=== PATIENT | female | born 1980 | race Caucasian/White ===

== ENCOUNTER 2016-11-26 05:17 | Inpatient (IN) | payer MEDICAID ==
[2016-11-26] MEDS ORDERED: Lactated Ringers 1,000 ML IV SCH (06:16)
[2016-11-26] MEDS ORDERED: Oxytocin 10 Units/1 ML SDV ONE ×2 (06:44→07:40)
[2016-11-26] MEDS ORDERED: cefOXitin 1 GM Vial ONE (06:45)
[2016-11-26] MEDS ORDERED: Albuterol/Ipratropium 3.0-0.5 MG/3 ML Neb Soln ONE (07:08)
[2016-11-26] MEDS ORDERED: Albuterol/Ipratropium 3.0-0.5 MG/3 ML Neb Soln INH ONE (07:15)
[2016-11-26] MEDS ORDERED: Sodium Chloride 0.9% 10 ML ONE (07:39)
[2016-11-26] MEDS ORDERED: cefOXitin 2 GM Vial ONE (07:39)
[2016-11-26] MEDS ORDERED: fentaNYL 100 MCG/2 ML SDV ONE (07:59)
[2016-11-26] MEDS ORDERED: HYDROmorphone/Normal Saline 15 MG/30 ML PCA IV ONE (09:03)
[2016-11-26] MEDS ORDERED: Naloxone 0.4 MG/ML SDV IV PRN (09:16)
[2016-11-26] MEDS ORDERED: HYDROmorphone/Normal Saline 15 MG/30 ML PCA IV PRN (09:16)
[2016-11-26] MEDS ORDERED: hydrOXYzine HCl 25 MG Tab PO PRN (09:21)
[2016-11-26] MEDS ORDERED: hydrOXYzine HCl 100 MG/2 ML SDV IM PRN (09:21)
[2016-11-26] MEDS ORDERED: Ondansetron 4 MG/2 ML SDV IVPUSH PRN (09:22)
[2016-11-26] MEDS ORDERED: Albuterol/Ipratropium 3.0-0.5 MG/3 ML Neb Soln INH PRN (09:25)
[2016-11-26] MEDS: Dextrose 5%-Lactated Ringers 1,000 ML IV SCH ×2 (13:32→19:53)
[2016-11-26] MEDS: cefOXitin 2 GM in Sodium Chloride 0.9% 50 ML IV SCH ×2 (13:37→19:53)
[2016-11-26] MEDS: Albuterol/Ipratropium 3.0-0.5 MG/3 ML Neb Soln INH SCH ×3 (14:06→22:02)
[2016-11-26] MEDS: Methylphenidate 10 MG Tab PO SCH (22:07)
[2016-11-27] MEDS: Dextrose 5%-Lactated Ringers 1,000 ML IV SCH (02:18)
[2016-11-27] MEDS: cefOXitin 2 GM in Sodium Chloride 0.9% 50 ML IV SCH (03:02)
[2016-11-27] MEDS: Albuterol/Ipratropium 3.0-0.5 MG/3 ML Neb Soln INH SCH ×4 (07:24→21:29)
[2016-11-27] MEDS ORDERED: Dextrose 5%-Lactated Ringers 1,000 ML IV SCH (07:30)
[2016-11-27] MEDS: Acetaminophen/HYDROcodone 325-5 MG Tab PO PRN ×3 (07:50→20:15)
[2016-11-27] MEDS: Pantoprazole 40 MG Tab.CR PO SCH (07:51)
[2016-11-27] MEDS: Docusate Sodium 100 MG Cap PO SCH ×2 (09:03→21:29)
[2016-11-27] MEDS: Ibuprofen 600 MG Tab PO SCH ×3 (09:03→21:29)
[2016-11-27] MEDS: Azithromycin 250 MG Tab PO SCH (09:04)
[2016-11-27] MEDS: Methylphenidate 10 MG Tab PO SCH ×2 (09:08→21:29)
--- NOTE | 2016-11-27 11:38 | PN ---
DATE OF SERVICE: 11/27/2016 SUBJECTIVE: Yajaira is postop day 1. She had a yesterday. She reports her pain is controlled. Vital signs have been stable. She has been up sitting in the chair. She does report a cough. REVIEW OF SYSTEMS: Remainder of review of systems negative for any pertinent positives and negatives. OBJECTIVE: GENERAL: Yajaira Marrero is a pleasant 36-year-old female. She is alert and orientated. VITAL SIGNS: TPR is 98.6, 92, 16, blood pressure 130/70. HEENT: Negative. NECK: Supple. HEART: Regular rate and rhythm. LUNGS: Decreased breath sounds bilaterally. There sound being, she has rales and rhonchi in both lungs. Cough is coarse. History of 2-pack a day smoker. ABDOMEN: Dressings dry and intact. EXTREMITIES: Without peripheral edema. ASSESSMENT: section with spinal anesthesia. Evans Olivia MD, 11/27/2016. PLAN: 1. Discontinue RESIDENT DIRECTOR and continuous pulse ox. 2. [place] 5/325 mg 1 to 2 every 4 hours p.r.n. pain. 3. Ibuprofen 600 mg q.6 hours p.r.n. pain. 4. Dressing off. 5. May shower. 6. D5 LR 100 mL per hour. 7. May saline lock if oral intake is adequate. 8. Discontinue clear liquid. 9. May have regular diet. 10.Colace 100 mg b.i.d. 11.Rx Zithromax 500 mg p.o. daily for 3 days. 12.Continue DuoNeb, aggressively work on lungs. 13.We will evaluate p.r.n. or in a.m. Xin Pulido PA-C /[id number]
[2016-11-28] MEDS: Ibuprofen 600 MG Tab PO SCH ×2 (04:05→10:39)
[2016-11-28] MEDS: Acetaminophen/HYDROcodone 325-5 MG Tab PO PRN ×2 (04:06→09:12)
[2016-11-28] MEDS: Albuterol/Ipratropium 3.0-0.5 MG/3 ML Neb Soln INH SCH ×2 (07:21→10:52)
--- NOTE | 2016-11-28 08:52 | DISCH ---
ADMISSION DIAGNOSES: 1. Planned pre-section. 2. Nicotine addiction. Smokes 2 packs of cigarettes a day. 3. Attention deficit hyperactivity disorder. 4. Asthma. 5. Depression. 6. History of one C section. 7. History of normal spontaneous vaginal deliveries x5. DISCHARGE DIAGNOSES: 1. section. 2. Bronchitis. HISTORY: Yajaira Marrero is a 36-year-old female who was scheduled for a repeat . After preoperative evaluation and discussion of possible risks and possible complications, she wished to proceed with surgical procedure. HOSPITAL COURSE: Yajaira had a on 11/26/2016. She had no operative complications. She delivered a viable baby girl. On postop day #1, she was started on a regular diet and oral pain medication. Her dressings were taken off, and she was showered. She was started on a stool softener as well as Zithromax 500 mg and DuoNebs. On postop day #2, she was able to be discharged to home. PHYSICAL EXAMINATION: GENERAL: Yajaira Marrero is a 36-year-old female. VITAL SIGNS: Height is 5 feet 1 inch. Weight is 204 pounds. TPR is 98.5, 76, 18, and blood pressure 113/61. HEENT: Negative. NECK: Supple. HEART: Regular rate and rhythm. LUNGS: Revealed better air exchange. She still has rhonchi and occasional wheezing. ABDOMEN: Incision looks good. Steri-Strips intact. EXTREMITIES: Without peripheral edema or leg pain. DISPOSITION: Discharged to home. CONDITION: Stable and improving. FOLLOWUP APPOINTMENT: With Xin Puildo PA-C, on 12/03/2016 at 11 a.m. DISCHARGE MEDICATIONS: Home medications; 1. [place] 5/325 mg 1 to 2 every 4 hours p.r.n. pain, #30. 2. Zithromax 500 mg p.o. daily. 3. Colace 100 mg p.o. b.i.d., #100. 4. Ibuprofen 600 mg q.6 hours, #48. 5. She is to resume her vitamins as directed and omeprazole 20 mg daily. DISCHARGE DIET: Usual diet as tolerated. Drink 8 to 10 glasses of water a day. ACTIVITY: No lifting more than baby and car seat for 6 weeks[address] Driving, do not drive while on pain medication. Shower/bathing, keep operative site clean and dry. DISCHARGE INSTRUCTIONS: Notify provider if any fever or increased pain. Special instruction; use incentive spirometer 10 times every hour while awake for 2 weeks. Try to decrease smoking and eventually stop.
[2016-11-28] MEDS: Docusate Sodium 100 MG Cap PO SCH (09:12)
[2016-11-28] MEDS: Azithromycin 250 MG Tab PO SCH (09:12)
[2016-11-28] MEDS: Pantoprazole 40 MG Tab.CR PO SCH (09:13)
[2016-11-28] MEDS: Methylphenidate 10 MG Tab PO SCH (09:15)
[2016-11-28 11:28] VITALS: BP 118/71
--- NOTE | 2016-12-01 11:03 | OR ---
DATE OF PROCEDURE: 11/26/2016 PREOPERATIVE DIAGNOSIS: Term with history of previous section. POSTOPERATIVE DIAGNOSES: 1. Term with history of previous section. 2. Incisional hernia. OPERATIVE PROCEDURES: 1. Repeat section (01735). 2. Repair of incisional hernia (32245). ANESTHESIA: Spinal. VIDEO GAME SCRIPT WRITER: Linda Jimenez CNM INDICATION FOR PROCEDURE: This is a 36-year-old presenting for a scheduled repeat section. The potential risks of the procedure including bleeding, infection, injury to mother and her baby were all reviewed, and the patient wishes to proceed. DETAILS OF PROCEDURE: After spinal anesthetic was placed, the patient was positioned in the supine position in the operating room with a roll underneath the right hip. A Schulz catheter was inserted, and the abdomen was prepped and draped. The previous transverse Pfannenstiel-type incision was then reused and carried down through the skin and subcutaneous tissue, and out through the rectus sheath. Subrectus sheath flaps were then raised superiorly and inferiorly. At that point, the patient was noted to have an incisional hernia located in the lower midline between the rectus muscle, more or less in the suprapubic area. This was subsequently repaired at the time of closure. The midline peritoneum was then divided, which included the area of the hernia, and the peritoneal reflection of bladder on the uterus was then divided, and the bladder was reflected downward. A transverse uterine incision was made and a viable female was delivered through a vertex presentation. Cord was clamped and cut and routine care given off the field per Linda Jimenez. The scores on the baby were 8 and 9 at 1 and 5 minutes respectively. The patient was given IV intrauterine oxytocin and IV cefoxitin. Placenta was delivered. There was an area in the posterior and inferior aspect of the placental attachment that appeared to have some element of placenta accreta. This was eventually bluntly dissected off and 2 sutures placed consisting of 2-0 Vicryl stitch, which did stop any remaining bleeding in that area. The uterus was then closed with 2 layers of 2-0 Vicryl stitch as was the peritoneal reflection of the bladder on the uterus. The midline musculature was then initially approximated with a #2 Vicryl stitch. This included closure of the area of the incisional hernia, which came up between the rectus muscles. The rectus muscles were quite closely approximated over that area. The rectus sheath was then closed over that completing the hernia repair also using #2 Vicryl stitch. The skin was approximated with some 3-0 Vicryl on subcutaneous tissue, and the skin with harshal. Dressing was applied. The patient was taken to the recovery room in a satisfactory condition. There were no evident complications. Evans Olivia MD /[id number]
== END 2016-11-28 12:30 | disposition home or self-care (01) | DRG 766 ==
LOC: JP.SDS 05:17 → JP.MS 07:50
PROVIDERS: ADMIT Nurse Practitioner Family; ATTEND Surgery
PROC: 10D00Z1 Extraction of Products of Conception, Low, Open Approach (ICD-10-PCS; principal; 2016-11-26)
PROC: 0WQF0ZZ Repair Abdominal Wall, Open Approach (ICD-10-PCS; 2016-11-26)
DX: O34.211 Maternal care for low transverse scar from previous cesarean delivery (principal); N85.8 Other specified noninflammatory disorders of uterus; O99.334 Smoking (tobacco) complicating childbirth; F17.210 Nicotine dependence, cigarettes, uncomplicated; Z3A.36 36 weeks gestation of pregnancy; Z37.0 Single live birth; O75.89 Other specified complications of labor and delivery; K43.2 Incisional hernia without obstruction or gangrene; J40 Bronchitis, not specified as acute or chronic; O43.219 Placenta accreta, unspecified trimester
CPT/HCPCS: 36415; 59409; 80048; 80305; 85027; 86850; 86900; 86901; 88307; 94640; 94762; A9270-GY; J0694; J1170; J2590; J3010; J7042; J7050; J7120; J7620

== ENCOUNTER 2019-08-18 19:29 | Emergency (ER) | payer MEDICAID ==
[2019-08-18 19:44] VITALS: BP 128/88; PULSE 78
--- NOTE | 2019-08-18 20:19 | EDM.PDOC ---
ED HPI GENERAL MEDICAL PROBLEM - General Chief Complaint: Upper Extremity Injury/Pain Stated Complaint: RT HAND PAIN Time Seen by Provider: 08/18/19 19:55 Source of Information: Reports: Patient History Limitations: Reports: No Limitations - History of Present Illness INITIAL COMMENTS - FREE TEXT/NARRATIVE: 39-year-old female arrives with 1 day of left middle finger pain with slight swelling. No known trauma that she can remember. She woke up with the swelling this morning and discomfort, and wanted it checked. Onset: Unknown/Unsure (Patient woke up this morning with symptoms) Duration: Hour(s): (12 hours) Location: Reports: Upper Extremity, Left Quality: Reports: Ache, Dull Worsens with: Reports: Movement Associated Symptoms: Reports: No Other Symptoms. 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: Endocrine/Metabolic History: Reports: Diabetes, Gestational, Obesity/BMI 30+ - Infectious Disease History Infectious Disease History: Reports: Chicken Pox - Past Surgical History HEENT Surgical History: Reports: Oral Surgery Other HEENT Surgeries/Procedures: teeth pulled GI Surgical History: Reports: Cholecystectomy Female Surgical History: Reports: Section Social & Family History - Family History Neurological: Reports: CVA, Dementia Oncologic: Reports: Brain - Tobacco Use Smoking Status *Q: Current Every Day Smoker Years of Tobacco use: 20 Packs/Tins Daily: 0.5 - Caffeine Use Caffeine Use: Reports: Coffee, Soda, Tea - Recreational Drug Use Recreational Drug Use: No Review of Systems - Review of Systems Review Of Systems: See Below Constitutional: Denies: Fever Respiratory: Denies: Shortness of Breath Cardiovascular: Denies: Chest Pain Musculoskeletal: Reports: Other (Pain only through the middle finger on the left hand) Skin: Denies: Erythema Neurological: Denies: Paresthesia ED EXAM, GENERAL - Physical Exam Exam: See Below Exam Limited By: No Limitations General Appearance: Alert, No Apparent Distress Head: Atraumatic Respiratory/Chest: No Respiratory Distress, Lungs Clear Extremities: Other (The middle finger on the left hand is slightly swollen and stiff compared to the other fingers, swelling seems to be localized in the MP joint and PIP joint area. There is increased pain with extension and flexion. There is no erythema, warmth, isolated joint inflammation or any evidence of infection.) Skin Exam: Warm, Dry, Other (Patient has numerous widespread excoriated lesions on the arms from chronic picking and scratching) Course - Vital Signs Last Recorded V/S: Last Vital Signs Temp 97.3 F 08/18/19 20:02 Pulse 78 08/18/19 20:02 Resp 14 08/18/19 20:02 BP 128/88 08/18/19 20:02 Pulse Ox 97 08/18/19 20:02 - Re-Assessments/Exams Free Text/Narrative Re-Assessment/Exam: 08/19/19 00:43 A 3 inch je wrap was applied to the hand and encouraged her to rest the finger through the weekend. Recheck right away if it becomes reddened, she becomes feverish, or there is increased swelling and pain. Otherwise increase activity as tolerated starting on Thursday. Departure - Departure Time of Disposition: 20:30 Disposition: Home, Self-Care 01 Clinical Impression: Tendinitis of finger of left hand - Discharge Information Instructions: Tendinitis Referrals: Linda Jimenez CNM [Primary Care Provider] - Forms: ED Department Discharge Care Plan Goals: Wrap hand for comfort over the next couple of days and increase activity as tolerated. Recheck if worsening such as redness, increased swelling, pain or fever. Sepsis Event Note (ED) - Evaluation Sepsis Screening Result: No Definite Risk - Focused Exam Vital Signs: Vital Signs Temp Pulse Resp BP Pulse Ox 08/18/19 20:02 97.3 F 78 14 128/88 97 08/18/19 19:42 97.3 F 78 14 128/88 97
== END 2019-08-18 20:29 | disposition home or self-care (01) ==
LOC: JP.ED 19:29
DX: M77.9 Enthesopathy, unspecified (principal); F17.210 Nicotine dependence, cigarettes, uncomplicated; J45.909 Unspecified asthma, uncomplicated; E66.9 Obesity, unspecified; Z68.35 Body mass index [BMI] 35.0-35.9, adult; Z88.8 Allergy status to other drugs, medicaments and biological substances; Z79.899 Other long term (current) drug therapy
CPT/HCPCS: 99283

== ENCOUNTER 2019-10-03 21:48 | Emergency (ER) | payer MEDICAID ==
[2019-10-03 22:01] VITALS: BP 157/106; PULSE 73
[2019-10-03] MEDS ORDERED: Ketorolac 60 MG/2 ML SDV IM ONE (22:07)
--- NOTE | 2019-10-03 22:22 | EDM.PDOC ---
ED HPI GENERAL MEDICAL PROBLEM - General Chief Complaint: General Stated Complaint: RT SIDE/SHOULDER PAIN Time Seen by Provider: 10/03/19 22:05 Source of Information: Reports: Patient, Old Records, RN History Limitations: Reports: No Limitations - History of Present Illness INITIAL COMMENTS - FREE TEXT/NARRATIVE: 39 yo female presents with pain to her R posterior shoulder for a couple days. No self tx. No injury. Has not seen or discussed with her primary. Onset: Gradual Duration: Day(s):, Constant Location: Reports: Back (R upper) Quality: Reports: Ache Severity: Moderate Improves with: Reports: None Worsens with: Reports: None Context: Reports: Other (unsure) Associated Symptoms: Reports: No Other Symptoms Treatments MANIPULATOR OPERATOR: Reports: Other (see below) (none) Right Shoulder Pain Score (Numeric/FACES): 9 - Related Data Allergies Allergy/AdvReac Type Severity Reaction Status Date / Time cyclobenzaprine Allergy Hives Verified 10/03/19 22:01 [From Flexeril] Home Meds: Home Meds Omeprazole 20 mg PO DAILY 11/24/16 [History] Past Medical History HEENT History: Reports: Impaired Vision Other HEENT History: wears glasses Respiratory History: Reports: 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: Endocrine/Metabolic History: Reports: Diabetes, Gestational, Obesity/BMI 30+ - Infectious Disease History Infectious Disease History: Reports: Chicken Pox - Past Surgical History HEENT Surgical History: Reports: Oral Surgery Other HEENT Surgeries/Procedures: teeth pulled GI Surgical History: Reports: Cholecystectomy Female Surgical History: Reports: Section Social & Family History - Family History Neurological: Reports: CVA, Dementia Oncologic: Reports: Brain - Tobacco Use Smoking Status *Q: Current Every Day Smoker Years of Tobacco use: 21 Packs/Tins Daily: 0.5 - Caffeine Use Caffeine Use: Reports: Coffee, Soda - Recreational Drug Use Recreational Drug Use: No ED ROS GENERAL - Review of Systems Review Of Systems: See Below Constitutional: Reports: No Symptoms Musculoskeletal: Reports: Shoulder Pain (R posterior) Skin: Reports: No Symptoms Neurological: Reports: No Symptoms ED EXAM, GENERAL - Physical Exam Exam: See Below Exam Limited By: No Limitations General Appearance: Alert, WD/WN, No Apparent Distress Back Exam: Normal Inspection, Full Range of Motion Extremities: Normal Inspection, Normal Range of Motion, No Pedal Edema, Other (tender between the R scapula and the spine). No: Non-Tender, Limited Range of Motion, Increased Warmth, Redness Neurological: Alert, Oriented, CN II-XII Intact, Normal Cognition, No Motor/Sensory Deficits Skin Exam: Warm, Dry, Intact, Normal Color, No Rash Course - Vital Signs Last Recorded V/S: Last Vital Signs Temp 36.3 C 10/03/19 22:02 Pulse 73 10/03/19 22:02 Resp 16 10/03/19 22:02 BP 157/106 H 10/03/19 22:02 Pulse Ox 98 10/03/19 22:02 - Orders/Labs/Meds Meds: Medications Discontinued Medications Generic Name Dose Route Start Last Admin Trade Name [place] PRN Reason Stop Dose Admin Ketorolac Tromethamine 60 mg 10/03/19 22:07 Toradol IM 10/03/19 22:08 ONETIME ONE Departure - Departure Time of Disposition: 22:25 Disposition: Home, Self-Care 01 Condition: Good Clinical Impression: Myofascial muscle pain - Discharge Information *PRESCRIPTION DRUG MONITORING PROGRAM REVIEWED*: No *COPY OF PRESCRIPTION DRUG MONITORING REPORT IN PATIENT [place]: No Referrals: Linda Jimenez CNM [Primary Care Provider] - Additional Instructions: Apply moist heat to area several times a day. Stretching as demonstrated in the ER several times/day. Massage area vigorously with AsperCreme. If not better in a week then see your doctor for recheck. Sepsis Event Note (ED) - Evaluation Sepsis Screening Result: No Definite Risk - Focused Exam Vital Signs: Vital Signs Temp Pulse Resp BP Pulse Ox 10/03/19 22:02 36.3 C 73 16 157/106 H 98 10/03/19 22:00 36.3 C 73 16 157/106 H 98
== END 2019-10-03 22:32 | disposition home or self-care (01) ==
LOC: JP.ED 21:48
DX: M79.18 Myalgia, other site (principal); M25.511 Pain in right shoulder; E66.9 Obesity, unspecified; Z68.36 Body mass index [BMI] 36.0-36.9, adult; F17.210 Nicotine dependence, cigarettes, uncomplicated; Z98.890 Other specified postprocedural states; Z88.8 Allergy status to other drugs, medicaments and biological substances
CPT/HCPCS: 96372; 99283; J1885; 99282